=== PATIENT | female | born 1960 | race Two or more races ===

== ENCOUNTER 2019-02-15 15:45 | Outpatient (CLI) | payer OTHER ==
[~2019-02-15 15:45] MED LIST: ATOR40TA78 PO; DOCU240C31 PO; IBUP-1222 PO; LOSA100T14 PO; OXYC1TAB7 PO; SYNJARDY
== END 2019-02-15 23:59 | disposition home or self-care (01) ==
LOC: CFH 15:45
PROVIDERS: ATTEND Obstetrics & Gynecology
DX: Z12.31 Encounter for screening mammogram for malignant neoplasm of breast (principal)
CPT/HCPCS: 77067